=== PATIENT | male | born 1935 | race Caucasian/White ===

== ENCOUNTER 2017-12-08 11:17 | Inpatient (IN) ==
[2017-12-08 12:49] LABS: Immature Granulocytes % 2.4 %; Immature Granulocytes Absolute 0.03 #; Lymphocytes # 0.4 10*3/uL (1.4-4.0); Lymphocytes % 28.3 % (21.2-54.2); Mean Corpuscular HGB Conc 33.3 GM/DL (32-36); Mean Corpuscular Hemoglobin 34 PG (27-34); Mean Corpuscular Volume 101.9 FL (87-102); Mean Platelet Volume 12.8 FL (9.6-12.0); Monocytes # 0.1 10*3/uL (0.11-0.8); Monocytes % 7.9 % (1.7-12.7); Neutrophils # 0.8 10*3/uL (1.4-7.4); Neutrophils % 61.4 % (38.7-73.9); Red Blood Count 1.59 MC/CUMM (3.8-5.5); Red Cell Distribution Width 17.9 % (9.3-17.3); White Blood Count 1.3 T/CUMM (4-12)
[2017-12-08 12:57] LABS: INR 1.2; PT Patient Result 12.3 SECS
[2017-12-08 12:59] LABS: Hematocrit 16.2 VOL% (42.0-52.0); Hemoglobin 5.4 GM/DL (14.0-18.0)
[2017-12-08 13:00] LABS: Platelet Count 19 T/CUMM (130-400)
[2017-12-08 13:07] LABS: Albumin 3.4 G/DL (3.4-5.0); Bilirubin,Total 1.1 MG/DL (0.2-1.0); Blood Urea Nitrogen 50 MG/DL (7-18); Calcium 8.3 MG/DL (8.5-10.1); Calcium 8.5 MG/DL (8.5-10.1); Glucose 270 MG/DL (74-106); Osmolality,Calculated 301.4 MOS/KG (273-304); Osmolality,Calculated 304.1 MOS/KG (273-304); Potassium 4.6 MMOL/L (3.5-5.1); Potassium 4.7 MMOL/L (3.5-5.1); Sodium 140 MMOL/L (136-145); Total Protein 6.7 G/DL (6.4-8.3); Troponin I < 0.015 NG/ML (0.00-0.045)
[2017-12-08 13:23] LABS: Anisocytosis Slight; Eosinophils 3 % (0-10); Lymphocytes 29 % (20-55); Microcytosis 1+; Segmented Neutrophils 63 % (50-85); Total Cells Counted 100
[2017-12-08 13:24] LABS: Hypochromasia Slight; Platelet Estimate Decreased; Tear Drop Cells Few
[2017-12-08] MEDS ORDERED: PANTOPRAZOLE 40 MG VIAL IV STA (13:54)
[2017-12-08] MEDS ORDERED: SODIUM CHLORIDE 0.9% 500 ML IV STA (13:54)
[2017-12-08] MEDS ORDERED: ONDANSETRON 4 MG/2 ML VIAL IV STA (13:54)
[2017-12-08] MEDS ORDERED: ONDANSETRON 4 MG/2 ML VIAL IV PRN (15:23)
[2017-12-08] MEDS ORDERED: ACETAMINOPHEN 325 MG TABLET PO PRN (15:23)
[2017-12-08] MEDS ORDERED: SODIUM CHLORIDE 0.9% 1,000 ML IV PRN ×3 (15:27→20:45)
[2017-12-08] MEDS ORDERED: DEXTROSE 50% 25 GM/50 ML VIAL IV PRN (15:31)
[2017-12-08] MEDS ORDERED: GLUCAGON 1 MG VIAL IM PRN (15:31)
[2017-12-08] MEDS ORDERED: CLOBETASOL 0.05% OINT 15 GM TUBE TOP PRN (15:31)
[2017-12-08 16:24] LABS: Immature Granulocytes % 2.2 %; Immature Granulocytes Absolute 0.06 #; Lymphocytes # 0.4 10*3/uL (1.4-4.0); Lymphocytes % 14.8 % (21.2-54.2); Mean Corpuscular HGB Conc 33.3 GM/DL (32-36); Mean Corpuscular Hemoglobin 34 PG (27-34); Mean Corpuscular Volume 101.3 FL (87-102); Mean Platelet Volume 13.8 FL (9.6-12.0); Monocytes # 0.2 10*3/uL (0.11-0.8); Monocytes % 6.9 % (1.7-12.7); Neutrophils # 2.1 10*3/uL (1.4-7.4); Neutrophils % 76.1 % (38.7-73.9); Red Blood Count 1.57 MC/CUMM (3.8-5.5); White Blood Count 2.8 T/CUMM (4-12)
[2017-12-08 16:25] LABS: Hemoglobin 5.3 GM/DL (14.0-18.0)
[2017-12-08 16:26] LABS: Hematocrit 15.9 VOL% (42.0-52.0); Platelet Count 20 T/CUMM (130-400)
[2017-12-08 16:28] LABS: Apearance,Urine CLEAR (Clear); Bilirubin,Urine Negative (Negative); Blood, Urine Small mg/dL (Negative); Glucose,Urine (UA) Negative (Negative); Ketones,Urine Negative (Negative); Nitrite,Urine Negative (Negative); Protein,Urine Negative; RBC,Urine 9 /HPF (0-4); Urine Color Yellow (Yellow); Urine Specific Gravity 1.012 (1.001-1.035); Urine Urobilinogen < 2.0 EU/DL (0.2-1.0); WBC,Urine 1 /HPF (0-6)
[2017-12-08 16:40] LABS: Hypochromasia 1+; Microcytosis 1+
[2017-12-08 16:41] LABS: Anisocytosis Slight; Platelet Estimate Decreased; Tear Drop Cells Few; Toxic Granulation 1+
[2017-12-08 17:01] LABS: Ferritin 343.6 ng/ml (26-388)
[2017-12-08 17:34] LABS: Sedimentation Rate-Westergren 52 MM/HR (0-20)
[2017-12-08] MEDS: INSULIN LISPRO 100 UNIT/ML SUBCUT SCH ×2 (18:05→22:28)
[2017-12-08] MEDS: CHOLECALCIFEROL 1,000 UNIT TABLET PO SCH (21:18)
[2017-12-08] MEDS: POTASSIUM CHLORIDE 20 MEQ TABLET PO SCH (21:18)
[2017-12-08] MEDS: ATORVASTATIN 40 MG TABLET PO SCH (21:18)
[2017-12-08] MEDS: MULTIVITAMIN (OCUVITE) TABLET PO SCH (21:18)
[2017-12-08] MEDS: PANTOPRAZOLE 40 MG VIAL IV SCH (21:19)
[2017-12-09] MEDS: LEVOTHYROXINE 50 MCG TABLET PO SCH (05:50)
[2017-12-09 05:53] LABS: Folate 17.2 NG/ML (5.4-24.0); Vitamin B12 1146 PG/ML (211-911)
[2017-12-09 07:49] LABS: Basophils % 0.1 % (0.0-0.8); Eosinophils % 0.1 % (0.00-10.9); Immature Granulocytes % 3.4 %; Immature Granulocytes Absolute 0.25 #; Lymphocytes # 0.6 10*3/uL (1.4-4.0); Lymphocytes % 8.7 % (21.2-54.2); Mean Corpuscular HGB Conc 33.5 GM/DL (32-36); Mean Corpuscular Hemoglobin 32 PG (27-34); Mean Corpuscular Volume 95.4 FL (87-102); Mean Platelet Volume 12.1 FL (9.6-12.0); Monocytes # 0.5 10*3/uL (0.11-0.8); Monocytes % 6.2 % (1.7-12.7); Neutrophils # 5.9 10*3/uL (1.4-7.4); Neutrophils % 81.5 % (38.7-73.9); Red Cell Distribution Width 18.6 % (9.3-17.3)
[2017-12-09 07:55] LABS: Platelet Count 31 T/CUMM (130-400); Red Blood Count 2.41 MC/CUMM (3.8-5.5); White Blood Count 7.3 T/CUMM (4-12)
[2017-12-09 07:56] LABS: Hemoglobin 7.7 GM/DL (14.0-18.0)
[2017-12-09] MEDS ORDERED: SODIUM CHLORIDE 0.9% 1,000 ML IV PRN (07:59)
[2017-12-09 08:01] LABS: Hemoglobin A1 (Alkaline) 97.1 % (96.5-98.5); Hemoglobin A2 (Alkaline) 2.9 % (1.5-3.5)
[2017-12-09 08:26] LABS: Blood Urea Nitrogen 36 MG/DL (7-18); Calcium 8.5 MG/DL (8.5-10.1); Cholesterol < 50 MG/DL (50-200); Glucose 175 MG/DL (74-106); HDL Cholesterol 21 MG/DL (40-60); Risk Ratio 2.38; Sodium 143 MMOL/L (136-145); Triglycerides 134 MG/DL (2-150); VLDL CHOLESTEROL 26.8 MG/DL
[2017-12-09 08:37] LABS: Hypochromasia 1+; Tear Drop Cells Slight
[2017-12-09 08:38] LABS: Anisocytosis 1+; Macrocytosis 1+; Ovalocytes Slight; Platelet Estimate Decreased
[2017-12-09] MEDS ORDERED: PANTOPRAZOLE 40 MG TABLET PO SCH (09:00)
[2017-12-09] MEDS: INSULIN LISPRO 100 UNIT/ML SUBCUT SCH ×4 (09:23→20:35)
[2017-12-09] MEDS ORDERED: HEPARIN 5,000 UNIT/1 ML VIAL ONE (10:31)
[2017-12-09] MEDS: TAMSULOSIN 0.4 MG CAPSULE PO SCH (13:14)
[2017-12-09] MEDS: PANTOPRAZOLE 40 MG VIAL IV SCH ×2 (13:14→20:04)
[2017-12-09] MEDS: TRIAMTERENE/HCTZ 37.5-25 MG TABLET PO SCH (13:14)
[2017-12-09] MEDS: MULTIVITAMIN (OCUVITE) TABLET PO SCH ×2 (13:14→20:04)
[2017-12-09] MEDS: ATORVASTATIN 40 MG TABLET PO SCH (20:04)
[2017-12-09] MEDS: CHOLECALCIFEROL 1,000 UNIT TABLET PO SCH (20:04)
[2017-12-09] MEDS: POTASSIUM CHLORIDE 20 MEQ TABLET PO SCH (20:04)
[2017-12-10] MEDS: LEVOTHYROXINE 50 MCG TABLET PO SCH (05:37)
[2017-12-10 07:53] LABS: Basophils % 0.2 % (0.0-0.8); Eosinophils # 0.1 10*3/uL (0.0-0.87); Eosinophils % 0.4 % (0.00-10.9); Hematocrit 28.9 VOL% (42.0-52.0); Hemoglobin 9.8 GM/DL (14.0-18.0); Immature Granulocytes % 9.9 %; Immature Granulocytes Absolute 1.42 #; Lymphocytes # 1.1 10*3/uL (1.4-4.0); Lymphocytes % 7.3 % (21.2-54.2); Mean Corpuscular HGB Conc 33.9 GM/DL (32-36); Mean Corpuscular Hemoglobin 31 PG (27-34); Mean Corpuscular Volume 92.3 FL (87-102); Mean Platelet Volume 12.4 FL (9.6-12.0); Monocytes # 0.9 10*3/uL (0.11-0.8); Neutrophils % 76.2 % (38.7-73.9); Platelet Count 40 T/CUMM (130-400); Red Blood Count 3.13 MC/CUMM (3.8-5.5); Red Cell Distribution Width 18.5 % (9.3-17.3); White Blood Count 14.4 T/CUMM (4-12)
[2017-12-10 08:15] LABS: Calcium 8.8 MG/DL (8.5-10.1); Osmolality,Calculated 290.3 MOS/KG (273-304); Potassium 4.1 MMOL/L (3.5-5.1)
[2017-12-10 08:27] LABS: Hypochromasia 1+; Ovalocytes Slight; Platelet Estimate Decreased
[2017-12-10 08:28] LABS: Microcytosis 1+
[2017-12-10] MEDS: INSULIN LISPRO 100 UNIT/ML SUBCUT SCH ×4 (08:52→20:49)
[2017-12-10] MEDS ORDERED: LIDOCAINE 100 MG/5 ML SYRINGE ONE (11:30)
[2017-12-10] MEDS ORDERED: PROPOFOL 200 MG/20 ML VIAL IV ONE (11:30)
[2017-12-10] MEDS: PANTOPRAZOLE 40 MG VIAL IV SCH ×2 (16:00→20:45)
[2017-12-10] MEDS: TRIAMTERENE/HCTZ 37.5-25 MG TABLET PO SCH (16:01)
[2017-12-10] MEDS: MULTIVITAMIN (OCUVITE) TABLET PO SCH ×2 (16:01→20:44)
[2017-12-10] MEDS: TAMSULOSIN 0.4 MG CAPSULE PO SCH (16:01)
[2017-12-10] MEDS: ATORVASTATIN 40 MG TABLET PO SCH (20:44)
[2017-12-10] MEDS: CHOLECALCIFEROL 1,000 UNIT TABLET PO SCH (20:45)
[2017-12-10] MEDS: POTASSIUM CHLORIDE 20 MEQ TABLET PO SCH (20:45)
[2017-12-11 05:08] LABS: Basophils # 0.1 10*3/uL (0.0-0.2); Basophils % 0.4 % (0.0-0.8); Eosinophils # 0.1 10*3/uL (0.0-0.87); Eosinophils % 0.5 % (0.00-10.9); Hematocrit 27.4 VOL% (42.0-52.0); Hemoglobin 9.7 GM/DL (14.0-18.0); Immature Granulocytes % 7.9 %; Immature Granulocytes Absolute 1.01 #; Lymphocytes # 1.1 10*3/uL (1.4-4.0); Lymphocytes % 8.3 % (21.2-54.2); Mean Corpuscular HGB Conc 35.4 GM/DL (32-36); Mean Corpuscular Hemoglobin 32 PG (27-34); Mean Corpuscular Volume 91.3 FL (87-102); Mean Platelet Volume 11.8 FL (9.6-12.0); Monocytes % 7.7 % (1.7-12.7); NRBC # 0.02 10*3/uL; Neutrophils # 9.6 10*3/uL (1.4-7.4); Neutrophils % 75.2 % (38.7-73.9); Red Cell Distribution Width 18.2 % (9.3-17.3); White Blood Count 12.8 T/CUMM (4-12)
[2017-12-11 05:22] LABS: Platelet Count 32 T/CUMM (130-400)
[2017-12-11 05:25] LABS: Calcium 8.5 MG/DL (8.5-10.1); Osmolality,Calculated 289.3 MOS/KG (273-304)
[2017-12-11 05:53] LABS: Band Neutrophils 13 % (0-10); Eosinophils 3 % (0-10); Lymphocytes 9 % (20-55); Myelocytes 2 %; Segmented Neutrophils 69 % (50-85); Total Cells Counted 100
[2017-12-11 05:54] LABS: Anisocytosis 1+
[2017-12-11 05:55] LABS: Hypochromasia 1+; Ovalocytes 1+; Platelet Estimate Decreased; Tear Drop Cells 1+
[2017-12-11] MEDS: LEVOTHYROXINE 50 MCG TABLET PO SCH (06:32)
[2017-12-11] MEDS: MULTIVITAMIN (OCUVITE) TABLET PO SCH (09:12)
[2017-12-11] MEDS: INSULIN LISPRO 100 UNIT/ML SUBCUT SCH (09:12)
[2017-12-11] MEDS: TRIAMTERENE/HCTZ 37.5-25 MG TABLET PO SCH (09:12)
[2017-12-11] MEDS: TAMSULOSIN 0.4 MG CAPSULE PO SCH (09:12)
[2017-12-11] MEDS: PANTOPRAZOLE 40 MG VIAL IV SCH (09:12)
[2017-12-11] MEDS ORDERED: LOPERAMIDE 2 MG CAPSULE PO PRN (10:49)
[2017-12-11 16:53] VITALS: BP 130/69
== END 2017-12-11 15:15 | disposition home or self-care (01) | DRG 811 ==
LOC: N.ED 11:17 → SUATTDRO 13:58 → N.EDINP 15:58 → N.2W 16:26 → N.4E 17:07
PROVIDERS: ADMIT Internal Medicine; ATTEND Family Medicine

== ENCOUNTER 2018-01-14 10:11 | Inpatient (IN) ==
[2018-01-14] MEDS ORDERED: PANTOPRAZOLE 40 MG VIAL IV STA (10:45)
[2018-01-14] MEDS ORDERED: SODIUM CHLORIDE 0.9% 500 ML IV STA (10:45)
[2018-01-14 11:06] LABS: Basophils % 0.1 % (0.0-0.8); Eosinophils % 0.2 % (0.00-10.9); Hematocrit 20.9 VOL% (42.0-52.0); Hemoglobin 7.2 GM/DL (14.0-18.0); Immature Granulocytes % 25.7 %; Immature Granulocytes Absolute 5.77 #; Lymphocytes # 1.5 10*3/uL (1.4-4.0); Lymphocytes % 6.9 % (21.2-54.2); Mean Corpuscular HGB Conc 34.4 GM/DL (32-36); Mean Corpuscular Hemoglobin 30 PG (27-34); Mean Corpuscular Volume 88.2 FL (87-102); Monocytes # 0.7 10*3/uL (0.11-0.8); Monocytes % 2.9 % (1.7-12.7); Neutrophils # 14.4 10*3/uL (1.4-7.4); Neutrophils % 64.2 % (38.7-73.9); Red Blood Count 2.37 MC/CUMM (3.8-5.5); Red Cell Distribution Width 15.1 % (9.3-17.3); White Blood Count 22.4 T/CUMM (4-12)
[2018-01-14 11:12] LABS: Platelet Count 6 T/CUMM (130-400)
[2018-01-14 11:16] LABS: INR 1.2; PT Patient Result 12.2 SECS; Partial Thromboplastin Time 28.4 SECS (0-40)
[2018-01-14 11:29] LABS: Albumin 3.2 G/DL (3.4-5.0); Calcium 8.5 MG/DL (8.5-10.1); Potassium 5.5 MMOL/L (3.5-5.1); Total Protein 7.5 G/DL (6.4-8.3)
[2018-01-14 11:35] LABS: Band Neutrophils 4 % (0-10); Eosinophils 1 % (0-10); Lymphocytes 6 % (20-55); Myelocytes 4 %; Segmented Neutrophils 82 % (50-85); Total Cells Counted 100
[2018-01-14 11:36] LABS: Platelet Estimate Decreased
[2018-01-14 11:37] LABS: Hypochromasia 1+; Microcytosis Slight; Reactive Lymphocytes Few
[2018-01-14] MEDS ORDERED: ACETAMINOPHEN 325 MG TABLET PO PRN (12:47)
[2018-01-14] MEDS ORDERED: ONDANSETRON 4 MG/2 ML VIAL IV PRN (12:47)
[2018-01-14] MEDS ORDERED: SODIUM CHLORIDE 0.9% 1,000 ML IV PRN ×3 (13:28→17:37)
[2018-01-14] MEDS ORDERED: CLOBETASOL 0.05% OINT 15 GM TUBE TOP PRN (13:32)
[2018-01-14] MEDS ORDERED: SODIUM CHLORIDE 0.9% 1,000 ML IV SCH (15:30)
[2018-01-14 17:24] LABS: Apearance,Urine CLEAR (Clear); Bilirubin,Urine Negative (Negative); Blood, Urine Large mg/dL (Negative); Glucose,Urine (UA) Negative (Negative); Ketones,Urine Negative (Negative); Nitrite,Urine Negative (Negative); Protein,Urine 30 MG/DL; RBC,Urine 22 /HPF (0-4); Urine Color Yellow (Yellow); Urine Urobilinogen < 2.0 EU/DL (0.2-1.0); WBC,Urine 1 /HPF (0-6)
[2018-01-14] MEDS: POTASSIUM CHLORIDE 20 MEQ TABLET PO SCH (21:19)
[2018-01-14] MEDS: POLYETHYLENE GLYCOL POWDER 17 GM PACK PO SCH (21:19)
[2018-01-14] MEDS: CHOLECALCIFEROL 1,000 UNIT TABLET PO SCH (21:19)
[2018-01-14] MEDS ORDERED: DEXTROSE 50% 25 GM/50 ML VIAL IV PRN (21:27)
[2018-01-14] MEDS ORDERED: GLUCAGON 1 MG VIAL IM PRN (21:27)
[2018-01-15] MEDS: SODIUM BICARB INJ 50 MEQ in DEXTROSE 5% 1,000 ML IV SCH ×2 (01:15→16:43)
[2018-01-15 04:40] LABS: Basophils % 0.1 % (0.0-0.8); Eosinophils # 0.1 10*3/uL (0.0-0.87); Eosinophils % 0.4 % (0.00-10.9); Hematocrit 22.2 VOL% (42.0-52.0); Hemoglobin 7.7 GM/DL (14.0-18.0); Immature Granulocytes % 27.6 %; Immature Granulocytes Absolute 3.89 #; Lymphocytes # 0.9 10*3/uL (1.4-4.0); Lymphocytes % 6.5 % (21.2-54.2); Mean Corpuscular HGB Conc 34.7 GM/DL (32-36); Mean Corpuscular Hemoglobin 31 PG (27-34); Mean Corpuscular Volume 88.4 FL (87-102); Monocytes # 0.4 10*3/uL (0.11-0.8); Monocytes % 3.1 % (1.7-12.7); Neutrophils # 8.8 10*3/uL (1.4-7.4); Neutrophils % 62.3 % (38.7-73.9); Red Blood Count 2.51 MC/CUMM (3.8-5.5); Red Cell Distribution Width 15.5 % (9.3-17.3); White Blood Count 14.1 T/CUMM (4-12)
[2018-01-15 05:05] LABS: Albumin 2.8 G/DL (3.4-5.0); Bilirubin,Total 1.1 MG/DL (0.2-1.0); Calcium 7.8 MG/DL (8.5-10.1); Osmolality,Calculated 306.1 MOS/KG (273-304); Potassium 5.5 MMOL/L (3.5-5.1); Total Protein 6.5 G/DL (6.4-8.3)
[2018-01-15 05:10] LABS: Platelet Count 16 T/CUMM (130-400)
[2018-01-15 05:39] LABS: Anisocytosis 1+; Band Neutrophils 8 % (0-10); Lymphocytes 5 % (20-55); Metamyelocytes 23 %; Microcytosis 1+; Myelocytes 1 %; Ovalocytes 1+; Platelet Estimate Decreased; Promyelocytes 2 %; Segmented Neutrophils 59 % (50-85); Total Cells Counted 100
[2018-01-15] MEDS: PANTOPRAZOLE 40 MG TABLET PO SCH ×2 (06:37→18:25)
[2018-01-15] MEDS: LEVOTHYROXINE 50 MCG TABLET PO SCH (06:37)
[2018-01-15] MEDS: MULTIVITAMIN (OCUVITE) TABLET PO SCH (08:21)
[2018-01-15] MEDS: ATORVASTATIN 40 MG TABLET PO SCH (08:21)
[2018-01-15] MEDS: POLYETHYLENE GLYCOL POWDER 17 GM PACK PO SCH ×2 (08:21→21:21)
[2018-01-15] MEDS: TAMSULOSIN 0.4 MG CAPSULE PO SCH (08:21)
[2018-01-15] MEDS ORDERED: SODIUM CHLORIDE 0.9% 1,000 ML IV PRN (10:12)
[2018-01-15 17:30] LABS: Basophils % 0.1 % (0.0-0.8); Eosinophils % 0.2 % (0.00-10.9); Hematocrit 26.4 VOL% (42.0-52.0); Hemoglobin 9.2 GM/DL (14.0-18.0); Immature Granulocytes % 26.3 %; Immature Granulocytes Absolute 3.36 #; Lymphocytes # 0.9 10*3/uL (1.4-4.0); Lymphocytes % 6.8 % (21.2-54.2); Mean Corpuscular HGB Conc 34.8 GM/DL (32-36); Mean Corpuscular Hemoglobin 31 PG (27-34); Mean Corpuscular Volume 87.7 FL (87-102); Mean Platelet Volume 12.1 FL (9.6-12.0); Monocytes # 0.3 10*3/uL (0.11-0.8); Monocytes % 2.4 % (1.7-12.7); Neutrophils # 8.2 10*3/uL (1.4-7.4); Neutrophils % 64.2 % (38.7-73.9); Red Blood Count 3.01 MC/CUMM (3.8-5.5); Red Cell Distribution Width 14.8 % (9.3-17.3); White Blood Count 12.8 T/CUMM (4-12)
[2018-01-15 17:42] LABS: Platelet Count 22 T/CUMM (130-400)
[2018-01-15 18:02] LABS: Band Neutrophils 5 % (0-10); Eosinophils 1 % (0-10); Hypochromasia Slight; Lymphocytes 9 % (20-55); Metamyelocytes 12 %; Microcytosis Slight; Myelocytes 8 %; Ovalocytes Few; Platelet Estimate Decreased; Segmented Neutrophils 62 % (50-85); Total Cells Counted 100
[2018-01-15] MEDS: CHOLECALCIFEROL 1,000 UNIT TABLET PO SCH (21:20)
[2018-01-15] MEDS: POTASSIUM CHLORIDE 20 MEQ TABLET PO SCH (21:21)
[2018-01-16] MEDS: SODIUM BICARB INJ 50 MEQ in DEXTROSE 5% 1,000 ML IV SCH ×5 (04:15→21:52)
[2018-01-16 06:05] LABS: Basophils % 0.1 % (0.0-0.8); Eosinophils # 0.1 10*3/uL (0.0-0.87); Eosinophils % 0.6 % (0.00-10.9); Hematocrit 25.3 VOL% (42.0-52.0); Hemoglobin 8.8 GM/DL (14.0-18.0); Immature Granulocytes % 24.3 %; Immature Granulocytes Absolute 2.88 #; Lymphocytes % 8.3 % (21.2-54.2); Mean Corpuscular HGB Conc 34.8 GM/DL (32-36); Mean Corpuscular Hemoglobin 30 PG (27-34); Mean Corpuscular Volume 86.6 FL (87-102); Mean Platelet Volume 11.6 FL (9.6-12.0); Monocytes # 0.3 10*3/uL (0.11-0.8); Monocytes % 2.6 % (1.7-12.7); Neutrophils # 7.6 10*3/uL (1.4-7.4); Neutrophils % 64.1 % (38.7-73.9); Red Blood Count 2.92 MC/CUMM (3.8-5.5); Red Cell Distribution Width 14.8 % (9.3-17.3); White Blood Count 11.9 T/CUMM (4-12)
[2018-01-16 06:08] LABS: Platelet Count 36 T/CUMM (130-400)
[2018-01-16] MEDS: LEVOTHYROXINE 50 MCG TABLET PO SCH (06:23)
[2018-01-16] MEDS: PANTOPRAZOLE 40 MG TABLET PO SCH ×2 (06:23→18:24)
[2018-01-16 06:26] LABS: Albumin 2.9 G/DL (3.4-5.0); Calcium 7.9 MG/DL (8.5-10.1); Osmolality,Calculated 301.2 MOS/KG (273-304); Potassium 4.4 MMOL/L (3.5-5.1); Total Protein 6.7 G/DL (6.4-8.3)
[2018-01-16 06:28] LABS: Band Neutrophils 8 % (0-10); Eosinophils 2 % (0-10); Lymphocytes 9 % (20-55); Metamyelocytes 3 %; Myelocytes 5 %; Segmented Neutrophils 72 % (50-85); Total Cells Counted 100
[2018-01-16 06:29] LABS: Hypochromasia Slight; Microcytosis Slight; Ovalocytes Slight; Platelet Estimate Decreased
[2018-01-16] MEDS ORDERED: SODIUM CHLORIDE 0.9% 1,000 ML IV PRN ×2 (06:29→06:36)
[2018-01-16] MEDS: POLYETHYLENE GLYCOL POWDER 17 GM PACK PO SCH ×2 (10:03→20:51)
[2018-01-16] MEDS: MULTIVITAMIN (OCUVITE) TABLET PO SCH (10:03)
[2018-01-16] MEDS: ATORVASTATIN 40 MG TABLET PO SCH (10:03)
[2018-01-16] MEDS: TAMSULOSIN 0.4 MG CAPSULE PO SCH (10:03)
[2018-01-16] MEDS: INSULIN LISPRO 100 UNIT/ML SUBCUT SCH ×3 (12:46→21:29)
[2018-01-16 17:55] LABS: Basophils % 0.1 % (0.0-0.8); Eosinophils % 0.4 % (0.00-10.9); Hemoglobin 8.5 GM/DL (14.0-18.0); Immature Granulocytes % 21.9 %; Immature Granulocytes Absolute 2.03 #; Lymphocytes # 0.8 10*3/uL (1.4-4.0); Lymphocytes % 8.7 % (21.2-54.2); Mean Corpuscular Hemoglobin 29 PG (27-34); Mean Corpuscular Volume 86.2 FL (87-102); Mean Platelet Volume 11.1 FL (9.6-12.0); Monocytes # 0.3 10*3/uL (0.11-0.8); Monocytes % 3.5 % (1.7-12.7); Neutrophils # 6.1 10*3/uL (1.4-7.4); Neutrophils % 65.4 % (38.7-73.9); Red Cell Distribution Width 14.6 % (9.3-17.3); White Blood Count 9.3 T/CUMM (4-12)
[2018-01-16 17:56] LABS: Platelet Count 40 T/CUMM (130-400)
[2018-01-16 18:28] LABS: Band Neutrophils 4 % (0-10); Eosinophils 1 % (0-10); Hypochromasia Slight; Lymphocytes 14 % (20-55); Metamyelocytes 3 %; Myelocytes 3 %; Platelet Estimate Decreased; Reactive Lymphocytes Few; Segmented Neutrophils 73 % (50-85); Total Cells Counted 100
[2018-01-16 18:29] LABS: Anisocytosis Slight
[2018-01-16] MEDS: CHOLECALCIFEROL 1,000 UNIT TABLET PO SCH (20:49)
[2018-01-16] MEDS: POTASSIUM CHLORIDE 20 MEQ TABLET PO SCH (20:51)
[2018-01-17] MEDS: SODIUM BICARB INJ 50 MEQ in DEXTROSE 5% 1,000 ML IV SCH ×3 (04:00→20:13)
[2018-01-17 04:35] LABS: Basophils % 0.1 % (0.0-0.8); Eosinophils % 0.5 % (0.00-10.9); Hematocrit 25.9 VOL% (42.0-52.0); Hemoglobin 8.6 GM/DL (14.0-18.0); Immature Granulocytes % 20.9 %; Immature Granulocytes Absolute 1.68 #; Lymphocytes # 0.9 10*3/uL (1.4-4.0); Lymphocytes % 11.1 % (21.2-54.2); Mean Corpuscular HGB Conc 33.2 GM/DL (32-36); Mean Corpuscular Hemoglobin 29 PG (27-34); Mean Corpuscular Volume 86.6 FL (87-102); Mean Platelet Volume 10.9 FL (9.6-12.0); Monocytes # 0.3 10*3/uL (0.11-0.8); Monocytes % 3.9 % (1.7-12.7); Neutrophils # 5.1 10*3/uL (1.4-7.4); Neutrophils % 63.5 % (38.7-73.9); Red Blood Count 2.99 MC/CUMM (3.8-5.5); Red Cell Distribution Width 14.6 % (9.3-17.3)
[2018-01-17 04:38] LABS: Platelet Count 41 T/CUMM (130-400)
[2018-01-17 05:00] LABS: Albumin 3.1 G/DL (3.4-5.0); Bilirubin,Total 1.2 MG/DL (0.2-1.0); Calcium 7.8 MG/DL (8.5-10.1); Potassium 3.9 MMOL/L (3.5-5.1); Total Protein 7.1 G/DL (6.4-8.3)
[2018-01-17 05:43] LABS: Eosinophils 2 % (0-10); Lymphocytes 21 % (20-55); Metamyelocytes 1 %; Myelocytes 1 %; Segmented Neutrophils 75 % (50-85); Total Cells Counted 100
[2018-01-17 05:44] LABS: Hypochromasia 1+; Microcytosis 1+; Platelet Estimate Decreased
[2018-01-17] MEDS: PANTOPRAZOLE 40 MG TABLET PO SCH ×2 (06:42→18:31)
[2018-01-17] MEDS: LEVOTHYROXINE 50 MCG TABLET PO SCH (06:42)
[2018-01-17] MEDS: MULTIVITAMIN (OCUVITE) TABLET PO SCH (10:13)
[2018-01-17] MEDS: TAMSULOSIN 0.4 MG CAPSULE PO SCH (10:13)
[2018-01-17] MEDS: POLYETHYLENE GLYCOL POWDER 17 GM PACK PO SCH ×3 (10:13→21:40)
[2018-01-17] MEDS: ATORVASTATIN 40 MG TABLET PO SCH (10:13)
[2018-01-17] MEDS: INSULIN LISPRO 100 UNIT/ML SUBCUT SCH ×4 (10:13→21:38)
[2018-01-17 17:31] LABS: Basophils % 0.1 % (0.0-0.8); Eosinophils % 0.4 % (0.00-10.9); Hematocrit 24.6 VOL% (42.0-52.0); Hemoglobin 8.5 GM/DL (14.0-18.0); Immature Granulocytes % 20.9 %; Immature Granulocytes Absolute 1.51 #; Lymphocytes # 0.8 10*3/uL (1.4-4.0); Lymphocytes % 10.8 % (21.2-54.2); Mean Corpuscular HGB Conc 34.6 GM/DL (32-36); Mean Corpuscular Hemoglobin 30 PG (27-34); Mean Corpuscular Volume 85.7 FL (87-102); Monocytes # 0.3 10*3/uL (0.11-0.8); Monocytes % 3.9 % (1.7-12.7); Neutrophils # 4.6 10*3/uL (1.4-7.4); Neutrophils % 63.9 % (38.7-73.9); Red Blood Count 2.87 MC/CUMM (3.8-5.5); Red Cell Distribution Width 14.6 % (9.3-17.3); White Blood Count 7.2 T/CUMM (4-12)
[2018-01-17 17:40] LABS: Platelet Count 47 T/CUMM (130-400)
[2018-01-17] MEDS ORDERED: SODIUM CHLORIDE 0.9% 1,000 ML IV PRN (18:03)
[2018-01-17 18:09] LABS: Band Neutrophils 5 % (0-10); Eosinophils 1 % (0-10); Lymphocytes 13 % (20-55); Myelocytes 3 %; Segmented Neutrophils 74 % (50-85); Total Cells Counted 100
[2018-01-17 18:10] LABS: Hypochromasia 1+; Microcytosis 1+; Platelet Estimate Decreased
[2018-01-17] MEDS: CHOLECALCIFEROL 1,000 UNIT TABLET PO SCH (21:38)
[2018-01-17] MEDS: POTASSIUM CHLORIDE 20 MEQ TABLET PO SCH (21:38)
[2018-01-18 05:08] LABS: Basophils % 0.2 % (0.0-0.8); Hematocrit 25.4 VOL% (42.0-52.0); Hemoglobin 8.5 GM/DL (14.0-18.0); Immature Granulocytes % 17.8 %; Immature Granulocytes Absolute 0.85 #; Lymphocytes # 0.7 10*3/uL (1.4-4.0); Lymphocytes % 15.1 % (21.2-54.2); Mean Corpuscular HGB Conc 33.5 GM/DL (32-36); Mean Corpuscular Hemoglobin 29 PG (27-34); Mean Corpuscular Volume 86.4 FL (87-102); Mean Platelet Volume 11.6 FL (9.6-12.0); Monocytes # 0.3 10*3/uL (0.11-0.8); Monocytes % 5.2 % (1.7-12.7); Neutrophils # 2.9 10*3/uL (1.4-7.4); Neutrophils % 61.7 % (38.7-73.9); Platelet Count 50 T/CUMM (130-400); Red Blood Count 2.94 MC/CUMM (3.8-5.5); Red Cell Distribution Width 14.6 % (9.3-17.3); White Blood Count 4.8 T/CUMM (4-12)
[2018-01-18 05:34] LABS: Albumin 3.3 G/DL (3.4-5.0); Bilirubin,Total 1.3 MG/DL (0.2-1.0); Osmolality,Calculated 297.8 MOS/KG (273-304); Potassium 4.1 MMOL/L (3.5-5.1); Total Protein 7.1 G/DL (6.4-8.3)
[2018-01-18] MEDS: SODIUM BICARB INJ 50 MEQ in DEXTROSE 5% 1,000 ML IV SCH ×2 (05:44→14:22)
[2018-01-18 05:45] LABS: Eosinophils 3 % (0-10); Hypochromasia Slight; Lymphocytes 29 % (20-55); Myelocytes 2 %; Platelet Estimate Decreased; Polychromasia Few; Segmented Neutrophils 64 % (50-85); Total Cells Counted 100
[2018-01-18] MEDS: LEVOTHYROXINE 50 MCG TABLET PO SCH (05:45)
[2018-01-18] MEDS: PANTOPRAZOLE 40 MG TABLET PO SCH ×2 (06:02→19:27)
[2018-01-18] MEDS: POLYETHYLENE GLYCOL POWDER 17 GM PACK PO SCH ×2 (09:02→22:08)
[2018-01-18] MEDS: MULTIVITAMIN (OCUVITE) TABLET PO SCH (09:06)
[2018-01-18] MEDS: INSULIN LISPRO 100 UNIT/ML SUBCUT SCH ×4 (09:06→21:38)
[2018-01-18] MEDS: TAMSULOSIN 0.4 MG CAPSULE PO SCH (09:06)
[2018-01-18] MEDS: POTASSIUM CHLORIDE 20 MEQ TABLET PO SCH (20:42)
[2018-01-18] MEDS: CHOLECALCIFEROL 1,000 UNIT TABLET PO SCH (20:43)
[2018-01-19] MEDS: SODIUM BICARB INJ 50 MEQ in DEXTROSE 5% 1,000 ML IV SCH (03:31)
[2018-01-19 05:47] LABS: Eosinophils % 0.6 % (0.00-10.9); Hematocrit 25.6 VOL% (42.0-52.0); Hemoglobin 8.5 GM/DL (14.0-18.0); Immature Granulocytes % 18.3 %; Immature Granulocytes Absolute 0.66 #; Lymphocytes # 0.7 10*3/uL (1.4-4.0); Lymphocytes % 18.6 % (21.2-54.2); Mean Corpuscular HGB Conc 33.2 GM/DL (32-36); Mean Corpuscular Hemoglobin 29 PG (27-34); Mean Corpuscular Volume 86.8 FL (87-102); Mean Platelet Volume 10.7 FL (9.6-12.0); Monocytes # 0.2 10*3/uL (0.11-0.8); Monocytes % 5.3 % (1.7-12.7); Neutrophils # 2.1 10*3/uL (1.4-7.4); Neutrophils % 57.2 % (38.7-73.9); Red Blood Count 2.95 MC/CUMM (3.8-5.5); Red Cell Distribution Width 14.4 % (9.3-17.3); White Blood Count 3.6 T/CUMM (4-12)
[2018-01-19 05:50] LABS: Platelet Count 34 T/CUMM (130-400)
[2018-01-19 06:07] LABS: Albumin 3.2 G/DL (3.4-5.0); Bilirubin,Total 1.3 MG/DL (0.2-1.0); Calcium 7.9 MG/DL (8.5-10.1); Osmolality,Calculated 295.8 MOS/KG (273-304); Potassium 3.9 MMOL/L (3.5-5.1); Total Protein 7.1 G/DL (6.4-8.3)
[2018-01-19] MEDS: PANTOPRAZOLE 40 MG TABLET PO SCH ×2 (06:17→19:11)
[2018-01-19] MEDS: LEVOTHYROXINE 50 MCG TABLET PO SCH (06:17)
[2018-01-19 06:22] LABS: Band Neutrophils 12 % (0-10); Eosinophils 1 % (0-10); Lymphocytes 22 % (20-55); Metamyelocytes 9 %; Platelet Estimate Decreased; Segmented Neutrophils 51 % (50-85); Total Cells Counted 100
[2018-01-19 06:25] LABS: Hypochromasia 1+
[2018-01-19] MEDS ORDERED: SODIUM CHLORIDE 0.9% 1,000 ML IV PRN (07:40)
[2018-01-19] MEDS: INSULIN LISPRO 100 UNIT/ML SUBCUT SCH ×4 (08:24→21:21)
[2018-01-19] MEDS: POLYETHYLENE GLYCOL POWDER 17 GM PACK PO SCH ×2 (08:24→21:21)
[2018-01-19] MEDS: MULTIVITAMIN (OCUVITE) TABLET PO SCH (08:25)
[2018-01-19] MEDS: TAMSULOSIN 0.4 MG CAPSULE PO SCH (08:25)
[2018-01-19] MEDS ORDERED: NITROGLYCERIN SL 0.4 MG TABLET SL ONE (13:51)
[2018-01-19 17:36] LABS: Hematocrit 28.8 VOL% (42.0-52.0); Hemoglobin 9.7 GM/DL (14.0-18.0)
[2018-01-19] MEDS: CHOLECALCIFEROL 1,000 UNIT TABLET PO SCH (21:21)
[2018-01-19] MEDS: CITRIC ACID/SODIUM CITRATE 30 ML UDCUP PO SCH (21:21)
[2018-01-19] MEDS: POTASSIUM CHLORIDE 20 MEQ TABLET PO SCH (21:21)
[2018-01-20 03:55] LABS: Basophils % 0.4 % (0.0-0.8); Eosinophils % 1.1 % (0.00-10.9); Hematocrit 28.3 VOL% (42.0-52.0); Hemoglobin 9.3 GM/DL (14.0-18.0); Immature Granulocytes % 15.2 %; Immature Granulocytes Absolute 0.43 #; Lymphocytes # 0.6 10*3/uL (1.4-4.0); Lymphocytes % 21.2 % (21.2-54.2); Mean Corpuscular HGB Conc 32.9 GM/DL (32-36); Mean Corpuscular Hemoglobin 28 PG (27-34); Mean Corpuscular Volume 86.3 FL (87-102); Mean Platelet Volume 9.8 FL (9.6-12.0); Monocytes # 0.2 10*3/uL (0.11-0.8); Monocytes % 7.8 % (1.7-12.7); Neutrophils # 1.5 10*3/uL (1.4-7.4); Neutrophils % 54.3 % (38.7-73.9); Red Blood Count 3.28 MC/CUMM (3.8-5.5); Red Cell Distribution Width 14.3 % (9.3-17.3); White Blood Count 2.8 T/CUMM (4-12)
[2018-01-20 03:59] LABS: Platelet Count 29 T/CUMM (130-400)
[2018-01-20 04:25] LABS: Albumin 3.3 G/DL (3.4-5.0); Bilirubin,Total 1.2 MG/DL (0.2-1.0); Calcium 8.4 MG/DL (8.5-10.1); Hypochromasia 1+; Microcytosis Slight; Ovalocytes Slight; Platelet Estimate Decreased; Total Protein 7.2 G/DL (6.4-8.3)
[2018-01-20] MEDS: PANTOPRAZOLE 40 MG TABLET PO SCH (06:06)
[2018-01-20] MEDS: LEVOTHYROXINE 50 MCG TABLET PO SCH (06:07)
[2018-01-20] MEDS ORDERED: SODIUM CHLORIDE 0.9% 1,000 ML IV PRN (08:03)
[2018-01-20] MEDS: MULTIVITAMIN (OCUVITE) TABLET PO SCH (09:17)
[2018-01-20] MEDS: TAMSULOSIN 0.4 MG CAPSULE PO SCH (09:17)
[2018-01-20] MEDS: INSULIN LISPRO 100 UNIT/ML SUBCUT SCH ×2 (09:17→12:58)
[2018-01-20] MEDS: CITRIC ACID/SODIUM CITRATE 30 ML UDCUP PO SCH (09:18)
[2018-01-20] MEDS: POLYETHYLENE GLYCOL POWDER 17 GM PACK PO SCH (09:18)
[2018-01-20 13:12] VITALS: BP 151/71
[2018-02-09] MEDS ORDERED: DARBEPOETIN ALFA 200 MCG/ML VIAL SUBCUT SCH (09:00)
== END 2018-01-20 13:41 | disposition home health service (06) | DRG 812 ==
LOC: N.ED 10:11 → SUATTDRO 11:46 → N.EDINP 11:46 → N.2E 12:34
PROVIDERS: ATTEND Internal Medicine

== ENCOUNTER 2018-02-10 13:10 | Inpatient (IN) ==
[2018-02-10] MEDS ORDERED: SODIUM CHLORIDE 0.9% 500 ML IV STA (13:31)
[2018-02-10] MEDS ORDERED: PANTOPRAZOLE 40 MG VIAL IV STA (13:31)
[2018-02-10 13:55] LABS: Eosinophils % 0.3 % (0.00-10.9); Immature Granulocytes % 7.7 %; Immature Granulocytes Absolute 0.25 #; Lymphocytes # 0.8 10*3/uL (1.4-4.0); Lymphocytes % 23.4 % (21.2-54.2); Mean Corpuscular HGB Conc 33.3 GM/DL (32-36); Mean Corpuscular Hemoglobin 30 PG (27-34); Mean Corpuscular Volume 90.6 FL (87-102); Mean Platelet Volume 11.3 FL (9.6-12.0); Monocytes # 0.4 10*3/uL (0.11-0.8); Monocytes % 13.2 % (1.7-12.7); Neutrophils # 1.8 10*3/uL (1.4-7.4); Neutrophils % 55.4 % (38.7-73.9); Red Blood Count 1.92 MC/CUMM (3.8-5.5); Red Cell Distribution Width 14.6 % (9.3-17.3); White Blood Count 3.3 T/CUMM (4-12)
[2018-02-10 13:58] LABS: Hemoglobin 5.8 GM/DL (14.0-18.0)
[2018-02-10 13:59] LABS: Hematocrit 17.4 VOL% (42.0-52.0); Platelet Count 28 T/CUMM (130-400)
[2018-02-10 14:06] LABS: INR 1.1; PT Patient Result 11.6 SECS; Partial Thromboplastin Time 27.8 SECS (0-40)
[2018-02-10 14:21] LABS: Albumin 3.8 G/DL (3.4-5.0); Bilirubin,Total 0.9 MG/DL (0.2-1.0); Calcium 8.5 MG/DL (8.5-10.1); Osmolality,Calculated 299.7 MOS/KG (273-304); Potassium 4.7 MMOL/L (3.5-5.1); Total Protein 8.2 G/DL (6.4-8.3)
[2018-02-10] MEDS ORDERED: SODIUM CHLORIDE 0.9% 1,000 ML IV PRN ×2 (14:25→15:17)
[2018-02-10 15:13] LABS: Band Neutrophils 2 % (0-10); Eosinophils 4 % (0-10); Lymphocytes 35 % (20-55); Metamyelocytes 1 %; Myelocytes 4 %; Nucleated Red Blood Cells 1 (0-5); Platelet Estimate Decreased; Segmented Neutrophils 50 % (50-85); Total Cells Counted 100
[2018-02-10 15:14] LABS: Hypochromasia 1+; Microcytosis Slight; Ovalocytes Few
[2018-02-10] MEDS ORDERED: ONDANSETRON 4 MG/2 ML VIAL IV PRN (15:17)
[2018-02-10] MEDS ORDERED: CLOBETASOL 0.05% OINT 15 GM TUBE TOP PRN (15:24)
[2018-02-10 17:22] LABS: Hematocrit 23.1 VOL% (42.0-52.0)
[2018-02-10] MEDS: MORPHINE 4 MG/1 ML VIAL IV PRN (17:22)
[2018-02-10 17:31] LABS: Hemoglobin 7.7 GM/DL (14.0-18.0)
[2018-02-10] MEDS: PIPERACILLIN/TAZOBACTAM 3,375 MG in SODIUM CHLORIDE 0.9% 100 ML IV SCH (19:16)
[2018-02-10] MEDS: SODIUM CHLORIDE 0.9% 1,000 ML IV SCH (19:26)
[2018-02-10] MEDS: CHOLECALCIFEROL 1,000 UNIT TABLET PO SCH (21:07)
[2018-02-10] MEDS: MULTIVITAMIN (OCUVITE) TABLET PO SCH (21:07)
[2018-02-10] MEDS: POTASSIUM CHLORIDE 20 MEQ TABLET PO SCH (21:07)
[2018-02-10] MEDS: PANTOPRAZOLE INJ 200 MG in SODIUM CHLORIDE 0.9% 250 ML IV SCH (23:52)
[2018-02-11] MEDS: LEVOTHYROXINE 50 MCG TABLET PO SCH (06:24)
[2018-02-11] MEDS ORDERED: SODIUM CHLORIDE 0.9% 1,000 ML IV PRN (07:54)
[2018-02-11 09:32] LABS: Basophils % 0.4 % (0.0-0.8); Eosinophils % 0.4 % (0.00-10.9); Hemoglobin 10.9 GM/DL (14.0-18.0); Immature Granulocytes Absolute 0.23 #; Lymphocytes # 0.6 10*3/uL (1.4-4.0); Lymphocytes % 25.7 % (21.2-54.2); Mean Corpuscular Hemoglobin 29 PG (27-34); Mean Corpuscular Volume 88.2 FL (87-102); Mean Platelet Volume 11.8 FL (9.6-12.0); Monocytes # 0.4 10*3/uL (0.11-0.8); Monocytes % 16.5 % (1.7-12.7); Neutrophils # 1.1 10*3/uL (1.4-7.4); Red Blood Count 3.74 MC/CUMM (3.8-5.5); Red Cell Distribution Width 14.6 % (9.3-17.3); White Blood Count 2.3 T/CUMM (4-12)
[2018-02-11 09:36] LABS: Platelet Count 22 T/CUMM (130-400)
[2018-02-11 09:45] LABS: INR 1.1; Partial Thromboplastin Time 32.7 SECS (0-40)
[2018-02-11 09:58] LABS: Band Neutrophils 5 % (0-10); Eosinophils 2 % (0-10); Hypochromasia 1+; Lymphocytes 35 % (20-55); Microcytosis Slight; Myelocytes 5 %; Ovalocytes Slight; Platelet Estimate Decreased; Segmented Neutrophils 41 % (50-85); Total Cells Counted 100
[2018-02-11] MEDS: ATORVASTATIN 40 MG TABLET PO SCH (10:00)
[2018-02-11] MEDS: TAMSULOSIN 0.4 MG CAPSULE PO SCH (10:00)
[2018-02-11] MEDS: TRIAMTERENE/HCTZ 37.5-25 MG TABLET PO SCH (10:01)
[2018-02-11] MEDS: MULTIVITAMIN (OCUVITE) TABLET PO SCH ×2 (10:01→20:15)
[2018-02-11] MEDS: PIPERACILLIN/TAZOBACTAM 3,375 MG in SODIUM CHLORIDE 0.9% 100 ML IV SCH ×2 (11:27→18:07)
[2018-02-11] MEDS: CHOLECALCIFEROL 1,000 UNIT TABLET PO SCH (20:15)
[2018-02-11] MEDS: POTASSIUM CHLORIDE 20 MEQ TABLET PO SCH (20:15)
[2018-02-11] MEDS: SODIUM CHLORIDE 0.9% 1,000 ML IV SCH (22:12)
[2018-02-11] MEDS: PANTOPRAZOLE INJ 200 MG in SODIUM CHLORIDE 0.9% 250 ML IV SCH (22:14)
[2018-02-12 05:03] LABS: Hematocrit 32.8 VOL% (42.0-52.0); Hemoglobin 10.9 GM/DL (14.0-18.0); Immature Granulocytes Absolute 0.18 #; Lymphocytes # 0.6 10*3/uL (1.4-4.0); Lymphocytes % 30.3 % (21.2-54.2); Mean Corpuscular HGB Conc 33.2 GM/DL (32-36); Mean Corpuscular Hemoglobin 29 PG (27-34); Mean Corpuscular Volume 87.9 FL (87-102); Mean Platelet Volume 11.6 FL (9.6-12.0); Monocytes # 0.2 10*3/uL (0.11-0.8); Monocytes % 10.9 % (1.7-12.7); Neutrophils % 49.8 % (38.7-73.9); Red Blood Count 3.73 MC/CUMM (3.8-5.5); Red Cell Distribution Width 14.4 % (9.3-17.3)
[2018-02-12 05:07] LABS: Calcium 8.4 MG/DL (8.5-10.1); INR 1.1; Osmolality,Calculated 296.4 MOS/KG (273-304); PT Patient Result 11.8 SECS; Potassium 4.7 MMOL/L (3.5-5.1)
[2018-02-12 05:21] LABS: Platelet Count 28 T/CUMM (130-400)
[2018-02-12] MEDS: LEVOTHYROXINE 50 MCG TABLET PO SCH (06:04)
[2018-02-12] MEDS: PIPERACILLIN/TAZOBACTAM 3,375 MG in SODIUM CHLORIDE 0.9% 100 ML IV SCH (06:04)
[2018-02-12 06:10] LABS: Albumin 3.3 G/DL (3.4-5.0); Bilirubin,Total 1.2 MG/DL (0.2-1.0); Calcium 8.5 MG/DL (8.5-10.1); Osmolality,Calculated 292.7 MOS/KG (273-304); Potassium 4.7 MMOL/L (3.5-5.1); Total Protein 7.2 G/DL (6.4-8.3)
[2018-02-12 07:07] LABS: Band Neutrophils 1 % (0-10); Eosinophils 6 % (0-10); Lymphocytes 48 % (20-55); Metamyelocytes 1 %; Myelocytes 5 %; Segmented Neutrophils 37 % (50-85); Total Cells Counted 100
[2018-02-12 07:08] LABS: Atypical Lymphocytes Few; Hypochromasia 1+; Microcytosis 1+; Ovalocytes Few; Platelet Estimate Decreased
[2018-02-12] MEDS ORDERED: GLUCAGON 1 MG VIAL IM PRN (07:53)
[2018-02-12] MEDS ORDERED: DEXTROSE 50% 25 GM/50 ML VIAL IV PRN (07:53)
[2018-02-12] MEDS ORDERED: POTASSIUM CHLORIDE RIDER 10 MEQ in PREMIX 1 EACH IV PRN (08:04)
[2018-02-12] MEDS ORDERED: MAGNESIUM SULF RIDER 2 GM in PREMIX 1 EACH IV PRN (08:04)
[2018-02-12] MEDS ORDERED: MAGNESIUM SULF RIDER 4 GM in PREMIX 1 EACH IV PRN (08:04)
[2018-02-12] MEDS: TRIAMTERENE/HCTZ 37.5-25 MG TABLET PO SCH (09:35)
[2018-02-12] MEDS: TAMSULOSIN 0.4 MG CAPSULE PO SCH (09:35)
[2018-02-12] MEDS: MULTIVITAMIN (OCUVITE) TABLET PO SCH ×2 (09:35→20:32)
[2018-02-12] MEDS: ATORVASTATIN 40 MG TABLET PO SCH (09:35)
[2018-02-12] MEDS: MEROPENEM 1,000 MG in SODIUM CHLORIDE 0.9% 100 ML IV SCH (16:45)
[2018-02-12] MEDS: INSULIN REGULAR 100 UNIT/ML SUBCUT SCH ×3 (18:55→20:33)
[2018-02-12] MEDS: CHOLECALCIFEROL 1,000 UNIT TABLET PO SCH (20:32)
[2018-02-12] MEDS: POTASSIUM CHLORIDE 20 MEQ TABLET PO SCH (20:33)
[2018-02-12] MEDS: SODIUM CHLORIDE 0.9% 1,000 ML IV SCH (20:36)
[2018-02-12] MEDS: PANTOPRAZOLE INJ 200 MG in SODIUM CHLORIDE 0.9% 250 ML IV SCH (22:05)
[2018-02-12] MEDS: MORPHINE 4 MG/1 ML VIAL IV PRN (22:57)
[2018-02-13] MEDS: MEROPENEM 1,000 MG in SODIUM CHLORIDE 0.9% 100 ML IV SCH ×2 (03:11→15:50)
[2018-02-13 04:14] LABS: INR 1.1; PT Patient Result 11.6 SECS
[2018-02-13 04:19] LABS: Basophils % 0.5 % (0.0-0.8); Eosinophils % 1.4 % (0.00-10.9); Hematocrit 33.1 VOL% (42.0-52.0); Hemoglobin 10.9 GM/DL (14.0-18.0); Immature Granulocytes % 10.5 %; Immature Granulocytes Absolute 0.23 #; Lymphocytes # 0.7 10*3/uL (1.4-4.0); Lymphocytes % 31.1 % (21.2-54.2); Mean Corpuscular HGB Conc 32.9 GM/DL (32-36); Mean Corpuscular Hemoglobin 29 PG (27-34); Mean Platelet Volume 11.5 FL (9.6-12.0); Monocytes # 0.3 10*3/uL (0.11-0.8); Monocytes % 13.2 % (1.7-12.7); Neutrophils % 43.3 % (38.7-73.9); Red Blood Count 3.72 MC/CUMM (3.8-5.5); Red Cell Distribution Width 14.5 % (9.3-17.3); White Blood Count 2.2 T/CUMM (4-12)
[2018-02-13 04:37] LABS: Albumin 3.3 G/DL (3.4-5.0); Bilirubin,Total 1.5 MG/DL (0.2-1.0); Calcium 8.2 MG/DL (8.5-10.1); Osmolality,Calculated 294.4 MOS/KG (273-304); Potassium 4.4 MMOL/L (3.5-5.1); Total Protein 7.4 G/DL (6.4-8.3)
[2018-02-13 04:52] LABS: Platelet Count 23 T/CUMM (130-400)
[2018-02-13] MEDS: MORPHINE 4 MG/1 ML VIAL IV PRN ×3 (05:28→23:16)
[2018-02-13] MEDS: LEVOTHYROXINE 50 MCG TABLET PO SCH (05:31)
[2018-02-13 05:48] LABS: Band Neutrophils 3 % (0-10); Metamyelocytes 9 %; Myelocytes 4 %; Segmented Neutrophils 33 % (50-85); Total Cells Counted 100
[2018-02-13 05:49] LABS: Eosinophils 5 % (0-10); Lymphocytes 32 % (20-55); Platelet Estimate Decreased
[2018-02-13] MEDS: INSULIN REGULAR 100 UNIT/ML SUBCUT SCH ×4 (09:51→21:26)
[2018-02-13] MEDS: ATORVASTATIN 40 MG TABLET PO SCH (09:52)
[2018-02-13] MEDS: TRIAMTERENE/HCTZ 37.5-25 MG TABLET PO SCH (09:52)
[2018-02-13] MEDS: MULTIVITAMIN (OCUVITE) TABLET PO SCH ×2 (09:52→21:04)
[2018-02-13] MEDS: TAMSULOSIN 0.4 MG CAPSULE PO SCH (10:50)
[2018-02-13] MEDS ORDERED: POLYETHYLENE GLYCOL POWDER 17 GM PACK PO PRN (11:28)
[2018-02-13] MEDS: SODIUM CHLORIDE 0.9% 1,000 ML IV SCH (15:50)
[2018-02-13] MEDS: CHOLECALCIFEROL 1,000 UNIT TABLET PO SCH (21:05)
[2018-02-13] MEDS: POTASSIUM CHLORIDE 20 MEQ TABLET PO SCH (21:05)
[2018-02-13] MEDS: PANTOPRAZOLE INJ 200 MG in SODIUM CHLORIDE 0.9% 250 ML IV SCH (22:27)
[2018-02-14] MEDS: MEROPENEM 1,000 MG in SODIUM CHLORIDE 0.9% 100 ML IV SCH ×2 (02:29→15:44)
[2018-02-14 03:15] LABS: Basophils % 0.5 % (0.0-0.8); Eosinophils % 2.1 % (0.00-10.9); Hematocrit 30.4 VOL% (42.0-52.0); Hemoglobin 10.2 GM/DL (14.0-18.0); Immature Granulocytes % 10.7 %; Lymphocytes # 0.6 10*3/uL (1.4-4.0); Lymphocytes % 34.2 % (21.2-54.2); Mean Corpuscular HGB Conc 33.6 GM/DL (32-36); Mean Corpuscular Hemoglobin 30 PG (27-34); Mean Corpuscular Volume 88.9 FL (87-102); Mean Platelet Volume 11.7 FL (9.6-12.0); Monocytes # 0.2 10*3/uL (0.11-0.8); Monocytes % 11.8 % (1.7-12.7); Neutrophils # 0.8 10*3/uL (1.4-7.4); Neutrophils % 40.7 % (38.7-73.9); Red Blood Count 3.42 MC/CUMM (3.8-5.5); Red Cell Distribution Width 14.6 % (9.3-17.3); White Blood Count 1.9 T/CUMM (4-12)
[2018-02-14 03:17] LABS: Platelet Count 21 T/CUMM (130-400)
[2018-02-14 03:31] LABS: Albumin 3.1 G/DL (3.4-5.0); Bilirubin,Total 0.9 MG/DL (0.2-1.0); Calcium 8.2 MG/DL (8.5-10.1); Osmolality,Calculated 295.3 MOS/KG (273-304); Potassium 4.6 MMOL/L (3.5-5.1)
[2018-02-14 03:42] LABS: Band Neutrophils 2 % (0-10); Eosinophils 8 % (0-10); Hypochromasia Slight; Lymphocytes 46 % (20-55); Myelocytes 6 %; Ovalocytes 1+; Platelet Estimate Decreased; Promyelocytes 2 %; Reactive Lymphocytes 1+; Segmented Neutrophils 26 % (50-85)
[2018-02-14 03:43] LABS: Total Cells Counted 100
[2018-02-14] MEDS: LEVOTHYROXINE 50 MCG TABLET PO SCH (06:15)
[2018-02-14] MEDS: SODIUM CHLORIDE 0.9% 1,000 ML IV SCH (06:16)
[2018-02-14] MEDS ORDERED: SODIUM CHLORIDE 0.9% 1,000 ML IV PRN (08:21)
[2018-02-14] MEDS: TAMSULOSIN 0.4 MG CAPSULE PO SCH (09:28)
[2018-02-14] MEDS: MULTIVITAMIN (OCUVITE) TABLET PO SCH (09:28)
[2018-02-14] MEDS: ATORVASTATIN 40 MG TABLET PO SCH (09:28)
[2018-02-14] MEDS: INSULIN REGULAR 100 UNIT/ML SUBCUT SCH ×3 (09:28→18:01)
[2018-02-14] MEDS: TRIAMTERENE/HCTZ 37.5-25 MG TABLET PO SCH (09:28)
[2018-02-14 19:12] VITALS: BP 162/76
[2018-02-15] MEDS ORDERED: PANTOPRAZOLE 40 MG VIAL IV SCH (09:00)
[2018-03-10] MEDS ORDERED: DARBEPOETIN ALFA IN POLYSORBAT SUBCUT SCH (09:00)
== END 2018-02-14 18:33 | disposition home health service (06) | DRG 378 ==
LOC: N.ED 13:10 → SUATTDRO 15:17 → N.EDINP 15:17 → N.4E 16:40
PROVIDERS: ADMIT Internal Medicine; ATTEND Internal Medicine